=== PATIENT | male | born 1955 | race Two or more races ===

== ENCOUNTER → 2022-05-31 | Outpatient (CLI) | payer OTHER | END | disposition home or self-care (01) | LOC: XYW 09:27 | PROVIDERS: ATTEND Surgery | DX: R42 Dizziness and giddiness (principal); I10 Essential (primary) hypertension; I51.89 Other ill-defined heart diseases; I49.9 Cardiac arrhythmia, unspecified; Z79.899 Other long term (current) drug therapy | CPT/HCPCS: 93886 ==